=== PATIENT | male | born 1980 | race Caucasian/White ===

== ENCOUNTER 2023-11-16 21:44 | Emergency (ER) | payer SELFPAY ==
[~2023-11-16] VITALS: Ht 167.6 cm; Wt 75.0 kg
[2023-11-16 22:06] VITALS: TEMP 98.3; O2SAT 96
[2023-11-17] MEDS ORDERED: GUAI600T26 MT (00:14)
[2023-11-17 01:01] VITALS: BP 127/88; PULSE 95; RESP 18
== END 2023-11-17 01:05 | disposition home or self-care (01) ==
LOC: ER 22:04
DX: B34.9 Viral infection, unspecified (principal); Z87.01 Personal history of pneumonia (recurrent); Z20.822 Contact with and (suspected) exposure to COVID-19
CPT/HCPCS: 71045; 87426; 99284